=== PATIENT | female | born 1955 | race Caucasian/White ===

== ENCOUNTER 2018-03-15 05:59 | Day surgery (SDC) | payer BC ==
[2018-03-15] MEDS ORDERED: DIPRIVAN 200 MG/20 ML IV ONE (06:00)
[2018-03-15] MEDS ORDERED: Lactated Ringers 1,000 ML IV SCH (06:30)
--- NOTE | 2018-03-15 08:24 | OP ---
SURGERY DATE/TIME: 03/15/2018 0742 PREOPERATIVE DIAGNOSES: 1) Screening exam. 2) History of colon polyps. POSTOPERATIVE DIAGNOSES: 1) Small polyps in the cecum, transverse and sigmoid colon. 2) Mild diverticulosis. PROCEDURE: Colonoscopy with biopsy. SURGEON: Dr. Horn. ANESTHESIA: MAC. Medications given by anesthesia department. HISTORY: The patient is a 63 year-old white female presenting now approximately eight years since her previous colonoscopy. She reports she did have polyps previously. The patient was appraised of the risks of the procedure including the risk of perforation, phlebitis, untoward reaction to medication, bleeding and missed lesions. The patient verbalized her understanding and desired to have the procedure performed. DESCRIPTION OF PROCEDURE: The patient was given the medications by the anesthesia department. She had continuous pulse oximetry, ECG monitoring, intermittent blood pressure monitoring and tidal CO2 monitoring during the examination. She was placed in the left lateral decubitus position. A digital rectal examination was performed and revealed normal anal sphincter tone and no masses. There were hemorrhoids present. The flexible Olympus pediatric colonoscope was used to intubate the rectum. A view of the colon was developed sequentially to the cecum. Upon insertion and withdrawal, including a retroflex view in the rectum, there was noted a small polyp in the cecum. There were also noted small polyps in the transverse and sigmoid colon and these measured approximately 0.6 cm in size. They were destroyed using cold biopsy technique and multiple passes of biopsy forceps. There were also noted to be scattered diverticula that were infrequent in frequency. The scope was removed from the patient who tolerated the procedure well and was sent back to OP recovery in good condition. The prep was noted to be fair to good.
[2018-03-15 08:49] VITALS: PULSE 56
[2018-03-15 09:01] VITALS: O2SAT 99
[2018-03-15 09:02] VITALS: BP 140/76
== END 2018-03-15 09:05 | disposition home or self-care (01) ==
LOC: SDC 05:59
PROVIDERS: ATTEND Family Medicine
DX: K63.5 Polyp of colon (principal); K57.90 Diverticulosis of intestine, part unspecified, without perforation or abscess without bleeding; Z12.11 Encounter for screening for malignant neoplasm of colon; Z86.010 Personal history of colon polyps; I10 Essential (primary) hypertension
CPT/HCPCS: 88305; J2704

== ENCOUNTER 2023-09-26 09:05 | Day surgery (SDC) | payer MEDICARE ==
[2023-09-26] MEDS ORDERED: BUPIVACAINE 0.5% VIAL IJ ONE (09:06)
[2023-09-26] MEDS ORDERED: Depo-Medrol 40 MG/ML IM ONE (09:06)
[2023-09-26] MEDS ORDERED: DIPRIVAN 200 MG/20 ML IV ONE (10:40)
[2023-09-26] MEDS ORDERED: Lactated Ringers 1,000 ML IV ONE (11:19)
--- NOTE | 2023-09-26 12:19 | XRAY ---
Indication: Left SI joint and greater trochanter bursa injection Intraoperative fluoroscopy provided for 28 seconds. 4 digital spot image obtained prone submitted for interpretation demonstrates posterior needle tip projecting over left SI joint. Second needle tip lateral to left greater trochanter with small amount of contrast injected for needle tip placement. Correlate with intraoperative findings/report.
--- NOTE | 2023-09-26 12:22 | XRAY ---
28 seconds of fluoroscopy was used in surgery for a left sacroiliac joint and left greater trochanteric bursa injection.
== END 2023-09-26 11:05 | disposition home or self-care (01) ==
LOC: SDC-PAIN 09:05
PROVIDERS: ATTEND Psychiatry & Neurology Pain Medicine
DX: M46.1 Sacroiliitis, not elsewhere classified (principal); M16.12 Unilateral primary osteoarthritis, left hip
CPT/HCPCS: 01992; 20610; 27096; 73501; 77002; G0260; J1030; J2704; Q9966

== ENCOUNTER 2024-08-21 10:31 | Day surgery (SDC) | payer MEDICARE ==
[2024-08-21] MEDS ORDERED: Decadron 4 MG INJ IV ONE (10:32)
[2024-08-21] MEDS ORDERED: Sodium Chloride 0.9(Preservative Free) 10 ML IJ ONE (10:32)
[2024-08-21] MEDS ORDERED: DIPRIVAN 200 MG/20 ML IV ONE (12:27)
--- NOTE | 2024-08-21 14:45 | XRAY ---
Indication: Left L4-S1 transforaminal JORGE A. Intraoperative fluoroscopy provided for 26 seconds. 5 digital spot image submitted for interpretation demonstrates posterior needle tips projecting over expected left L4 and L5 nerve roots. Small amount of contrast injected for needle tip placement. Correlate with intraoperative findings/report.
--- NOTE | 2024-08-21 14:45 | XRAY ---
26 seconds of fluoroscopy was used in surgery for a left L4-S1 transforaminal JORGE A.
== END 2024-08-21 13:03 | disposition home or self-care (01) ==
LOC: SDC-PAIN 10:31
PROVIDERS: ATTEND Psychiatry & Neurology Pain Medicine
DX: M54.16 Radiculopathy, lumbar region (principal)
CPT/HCPCS: 64483; 64484; 72100; 77003; J1100; J2704; Q9966

== ENCOUNTER 2025-02-18 08:26 | Day surgery (SDC) | payer MEDICARE ==
[2025-02-18] MEDS ORDERED: Sodium Chloride 0.9(Preservative Free) 10 ML IJ ONE (08:27)
[2025-02-18] MEDS ORDERED: dexAMETHasone sodium phosphate IJ ONE (08:27)
[2025-02-18] MEDS ORDERED: propofoL IV ONE (10:44)
[2025-02-18] MEDS ORDERED: Lactated Ringers 1,000 ML IV ONE (13:41)
--- NOTE | 2025-02-18 21:10 | XRAY ---
Indication: Left L4-S1 transforaminal JORGE A. Intraoperative fluoroscopy provided for 25 seconds. 4 digital spot image submitted for interpretation demonstrates posterior needle tips projecting over expected left L4 and L5 nerve roots. Small amount of contrast injected for needle tip placement. Correlate with intraoperative findings/report.
--- NOTE | 2025-02-18 21:22 | XRAY ---
25 seconds of fluoroscopy was used in surgery for a left L4-S1 transforaminal JORGE A.
== END 2025-02-18 11:15 | disposition home or self-care (01) ==
LOC: SDC-PAIN 08:26
PROVIDERS: ATTEND Psychiatry & Neurology Pain Medicine
DX: M54.16 Radiculopathy, lumbar region (principal)
CPT/HCPCS: 64483; 64484; 72100; J1100; J2704; Q9966

== ENCOUNTER 2025-05-06 07:53 | Day surgery (SDC) | payer MEDICARE ==
[2025-05-06] MEDS ORDERED: LIDOCAINE HCL 1% 50 MG/5 ML VL IJ ONE (07:54)
[2025-05-06] MEDS ORDERED: BUPIVACAINE 0.5% VIAL IJ ONE (07:54)
[2025-05-06] MEDS ORDERED: Depo-Medrol 40 MG/ML IM ONE (07:54)
[2025-05-06] MEDS ORDERED: propofoL IV ONE (09:18)
[2025-05-06] MEDS ORDERED: Lactated Ringers 1,000 ML IV ONE ×2 (10:07→10:57)
--- NOTE | 2025-05-06 11:33 | XRAY ---
Indication: Left L4-S1 RFA. Intraoperative fluoroscopy provided for 17 seconds. 3 digital spot image submitted for interpretation demonstrates posterior needle tips projecting over expected left L4-S1 nerve roots. Correlate with intraoperative findings/report.
--- NOTE | 2025-05-06 11:47 | XRAY ---
17 seconds of fluoroscopy was used in surgery for a left L4-S1 RFA.
== END 2025-05-06 09:56 | disposition home or self-care (01) ==
LOC: SDC-PAIN 07:53
PROVIDERS: ATTEND Psychiatry & Neurology Pain Medicine
DX: M47.817 Spondylosis without myelopathy or radiculopathy, lumbosacral region (principal)